=== PATIENT | female | born 1985 | race Caucasian/White ===

== ENCOUNTER 2019-05-07 05:11 | Day surgery (SDC) | payer OTHER ==
[~2019-05-07 05:11] MED LIST: DORYX100 MG PO; TYLENOL-CODEINE1 TAB PO
[2019-05-07] MEDS ORDERED: Tylenol #3 PO (09:55)
== END 2019-05-07 13:30 | disposition home or self-care (01) ==
LOC: CIR.AMB 05:11
DX: N80.1 Endometriosis of ovary (principal); N73.6 Female pelvic peritoneal adhesions (postinfective)

== ENCOUNTER 2022-01-11 06:00 | Day surgery (SDC) | payer OTHER ==
[~2022-01-11 06:00] MED LIST changes: +Tylenol #3 PO
[2022-01-11] MEDS ORDERED: NAPR500T14 PO (13:29)
[2022-01-11] MEDS ORDERED: MORGIDOX100 MG PO (13:29)
== END 2022-01-11 18:35 | disposition home or self-care (01) ==
LOC: CIR.AMB 06:00
PROVIDERS: ATTEND Obstetrics & Gynecology
DX: D25.0 Submucous leiomyoma of uterus (principal); N84.0 Polyp of corpus uteri; Z20.822 Contact with and (suspected) exposure to COVID-19; J45.909 Unspecified asthma, uncomplicated